=== PATIENT | female | born 1965 | race African-American/Black ===

== ENCOUNTER → 2020-06-05 | Outpatient (CLI) | payer OTHER ==
[~2020-06-05] MED LIST: DOCU-109 PO; FLUO60TA PO; GABA300C18 PO; GLUC-11 PO; IBUP-1060 PO; PREN-2 PO
[2020-06-05 13:41] LABS: BASO # 0.1 x10^3/uL (0.0-0.2); BASO % 1 % (0-3); EOS # 0.1 x10^3/uL (0.0-0.7); EOS % 1 % (0-3); HEMATOCRIT 38.9 % (36.0-47.0); HEMOGLOBIN 13.4 g/dL (12.0-15.5); LYMPH # 2.3 x10^3/uL (1.0-4.8); LYMPH % 24 % (24-48); MEAN CORPUSCULAR HEMOGLOBIN 31 pg (25-35); MEAN CORPUSCULAR HGB CONC 34 g/dL (31-37); MEAN CORPUSCULAR VOLUME 89 fL (79-100); MONO # 0.8 x10^3/uL (0.0-1.1); MONO % 8 % (0-9); NEUT # 6.6 x10^3/uL (1.8-7.7); NEUT % 67 % (31-73); PLATELET COUNT 279 x10^3/uL (140-400); RED BLOOD COUNT 4.38 x10^6/uL (3.50-5.40); RED CELL DISTRIBUTION WIDTH 13.6 % (11.5-14.5); WHITE BLOOD COUNT 9.9 x10^3/uL (4.0-11.0)
== END ==
LOC: SURGPAT 12:23
PROVIDERS: ATTEND Obstetrics & Gynecology
DX: Z01.818 Encounter for other preprocedural examination (principal); Z11.59 Encounter for screening for other viral diseases
CPT/HCPCS: 36415; 85025; U0003

== ENCOUNTER 2020-06-08 06:05 | Observation (INO) | payer OTHER ==
[2020-06-08] VITALS (9 sets, daily range): BP systolic 123–149; BP diastolic 65–82
[~2020-06-08] VITALS: Ht 152.4 cm; Wt 74.0 kg
[~2020-06-08 06:05] MED LIST changes: +AZTREONAM IV Push 1 GM VIAL. IVP PRN; +CLINDAMYCIN 900MG PREMIX 50 ML IV PRN; -DOCU-109 PO; -GABA300C18 PO; -IBUP-1060 PO
[2020-06-08] MEDS ORDERED: fentaNYL PF VIAL 100 MCG/2 ML VIAL IV PRN (07:00)
[2020-06-08] MEDS ORDERED: LIDOCAINE 1% PF 2 ML VIAL. ID PRN (07:00)
[2020-06-08] MEDS ORDERED: MORPHINE SULFATE 2 MG/ML VIAL. IV PRN (07:00)
[2020-06-08] MEDS ORDERED: ONDANSETRON PF 4 MG/2 ML VIAL. IV PRN ×2 (07:00→10:00)
[2020-06-08] MEDS ORDERED: IV RINGERS,LACTATED 1000ML 1,000 ML IV SCH (07:00)
[2020-06-08] MEDS ORDERED: PROCHLORPERAZINE 10 MG/2 ML VIAL. IV PRN ×2 (07:00→10:00)
[2020-06-08] MEDS ORDERED: HYDROmorphone 2 MG/ML VIAL IV PRN (07:00)
[2020-06-08] MEDS ORDERED: BUPIVACAINE-EPI 0.25%-1:200000 MPF 30 ML VIAL. ONE ×2 (07:05→09:33)
[2020-06-08] MEDS ORDERED: SURGICEL HEMOSTAT 4X8 EACH. ONE (07:05)
[2020-06-08] MEDS ORDERED: ESTROGENS, CONJ VAGINAL CREAM 30GM TUBE. ONE (07:05)
[2020-06-08] MEDS ORDERED: LIDOCAINE 1%/EPI 1:100,000 20 ML VIAL. ONE (07:05)
[2020-06-08] MEDS ORDERED: INDIGOTINDISULFONATE SODIUM 40 MG/5 ML AMPUL. ONE (07:05)
[2020-06-08] MEDS ORDERED: ROCURONIUM 50 MG/5 ML VIAL. ONE (07:14)
[2020-06-08] MEDS ORDERED: fentaNYL PF VIAL 100 MCG/2 ML VIAL ONE ×3 (07:14→10:30)
[2020-06-08] MEDS ORDERED: LIDOCAINE 2% PF 5 ML VIAL. ONE (07:14)
[2020-06-08] MEDS ORDERED: MIDAZOLAM HCL/PF 2 MG/2 ML VIAL. ONE (07:14)
[2020-06-08] MEDS ORDERED: PROPOFOL 10 MG/ML (20ML) VIAL. IV ONE (07:14)
[2020-06-08] MEDS ORDERED: DEXAMETHASONE SOD PHOS 4 MG/ML VIAL ONE (07:53)
[2020-06-08] MEDS ORDERED: ONDANSETRON PF 4 MG/2 ML VIAL. ONE (07:53)
[2020-06-08] MEDS ORDERED: GLYCOPYRROLATE 1 MG/5 ML VIAL. ONE (08:30)
[2020-06-08] MEDS ORDERED: ePHEDrine PF IN SALINE 50 MG/10 ML SYRINGE. IV ONE (08:30)
[2020-06-08] MEDS ORDERED: KETOROLAC 30 MG/ML VIAL. ONE (08:44)
[2020-06-08] MEDS ORDERED: NEOSTIGMINE METHYLSULFATE 5 MG/5 ML SYRINGE. ONE (08:47)
[2020-06-08] MEDS ORDERED: SEVOFLURANE 61 TO 120 MINUTES. IH ONE (09:19)
--- NOTE | 2020-06-08 09:53 | PDOC ---
BRIEF OPERATIVE NOTE Date: Jun 08, 2020 Pre-Op Diagnosis 1. Fibroids 2. Dyspareunia 3. Chronic Pelvic Pain 4. Cystocele Post-Op Diagnosis Same Procedure Performed 1. LAVH 2. Anterior Colporrhaphy Surgeon Dr. Hernandez Anesthesia Type: General Blood Loss 50 ml Specimens Obtained cervix, uterus, vesta. fallopian tubes Findings enlarged, fibroid uterus, nml fallopian tubes and ovaries vesta.; cystocele stage 3 Complications none Operative Note see dictation JIMMY HERNANDEZ Jr, MD Jun 08, 2020 09:53
[2020-06-08] MEDS ORDERED: CALCIUM CARBONATE 500 MG TAB.CHEW PO PRN (10:00)
[2020-06-08] MEDS ORDERED: DEXTROSE 50% 25 GM / 50ML DISP.SYRIN. IV PRN (10:00)
[2020-06-08] MEDS ORDERED: diphenhydrAMINE 50 MG/ML VIAL IV PRN (10:00)
[2020-06-08] MEDS ORDERED: ZOLPIDEM 5 MG TABLET. PO PRN (10:00)
[2020-06-08] MEDS ORDERED: diphenhydrAMINE HCL 25 MG CAPSULE PO PRN (10:00)
[2020-06-08] MEDS ORDERED: SIMETHICONE 80 MG TAB.CHEW PO PRN (10:00)
[2020-06-08] MEDS ORDERED: 0.9 % SODIUM CHLORIDE 10 ML DISP.SYRIN. IV PRN (10:00)
--- NOTE | 2020-06-08 10:06 | OP ---
DATE OF SURGERY: 06/08/2020 PREOPERATIVE DIAGNOSES: 1. Fibroids. 2. Dyspareunia. 3. Chronic pelvic pain. 4. Cystocele. POSTOPERATIVE DIAGNOSES: 1. Fibroids. 2. Dyspareunia. 3. Chronic pelvic pain. 4. Cystocele. PROCEDURE: 1. Laparoscopically assisted vaginal hysterectomy. 2. Anterior colporrhaphy. SURGEON: Jimmy Hernandez MD ANESTHESIA: General. ESTIMATED BLOOD LOSS: 50 mL. COMPLICATIONS: None. FINDINGS: Enlarged fibroid uterus, normal fallopian tubes and ovaries bilaterally, and cystocele stage 3. SUMMARY: A 54-year-old female with long history of enlarging fibroids, chronic pelvic pain, and dyspareunia as well as a cystocele, requiring surgical management. She was counseled on risks, benefits and expectations of the surgeries and desired to proceed. DESCRIPTION OF PROCEDURE: The patient was taken to surgery suite and placed in dorsal lithotomy position. She was prepped with Betadine solution for vaginal prep and ChloraPrep for abdominal prep. After adequate anesthesia, bivalve speculum was placed vaginally. Anterior lip of the cervix grasped with single tooth tenaculum. The [employer] uterine manipulator was then placed. The bivalve speculum was removed. Attention was now placed on abdomen. Small transverse skin incision was made just below the umbilicus with a scalpel. The Veress needle was then placed through the infraumbilical incision site. The abdomen was allowed to insufflate up to 1-1/2 liters CO2 gas. Veress needle was then removed. A 5-mm trocar was placed. There were some adhesions of the omentum to the abdominal wall. Two additional incisions made in the left lower quadrant, which 5 mm trocars were placed. The adhesions of the omentum to abdominal wall were removed using the EnSeal device. We then proceeded with the hysterectomy portion. The uterus was very enlarged with multiple fibroids. Fallopian tubes and ovaries appeared normal bilaterally. The right fallopian tube was grasped with graspers. The EnSeal device was utilized to coagulate and dissect the right fallopian tube away from the pelvic sidewall. The right utero-ovarian pedicle was coagulated and dissected. The right round ligament was coagulated and dissected down through the right broad ligament to the uterine artery. Same process took place with left adnexa. We then proceeded vaginally. Weighted speculum and curved Jodie placed vaginally. The [employer] uterine manipulator and single tooth tenaculum were removed. Tyler clamps were placed on the anterior and posterior lip of the cervix. 1% lidocaine with epinephrine was injected in a circumferential manner around the cervix. The cervix was then circumscribed with Bovie cautery. The vaginal mucosa was dissected away from the lower uterine segment using blunt dissection with a moist Ray-Sana. The parametrial tissue was clamped bilaterally with curved Karyn clamps, cut and suture ligated with 2-0 Vicryl suture. Posterior cul-de-sac was then entered sharply with curved Frye scissors. The uterosacral ligaments were then clamped bilaterally, cut, and suture ligated. We then entered the anterior cul-de-sac with blunt dissection using moist Ray-Sana. The cardinal ligaments were then clamped bilaterally, cut, and suture ligated. Uterus was then partially removed. There were 2 peritoneal adhesions that were clamped, cut, and tied with free tie. The cervix, uterus and bilateral fallopian tubes were then removed in their entirety. A modified Cummins's culdoplasty was performed incorporating the uterosacral ligaments bilaterally. The remainder of the vaginal cuff was reapproximated using 2-0 Vicryl suture in [id number] manner. Small Allis clamp was placed 2 cm below the urethral orifice on the anterior vaginal wall. A second Allis clamp was placed just 4 cm below the first Allis clamp at the midline of the anterior vaginal wall. 1% lidocaine with epinephrine was injected between the 2 Allis clamps. Scalpel was utilized to make a vertical incision between 2 Allis clamps. The anterior vaginal wall mucosa was dissected free of the pubovesical fascia using sharp dissection with Metzenbaum scissors bilaterally. The pubovesical fascia was reapproximated using 2-0 Vicryl sutures in an interrupted fashion. The excess anterior vaginal mucosa was excised with Metzenbaum scissors. The remaining anterior vaginal wall mucosa was reapproximated using 2-0 Vicryl suture in a [id number] manner. Moist vaginal packing was placed. Attention was once again placed on abdomen. The abdomen was insufflated up to 1-1/2 liters CO2 gas. The scope was positioned. The vaginal cuff was visualized and was hemostatic. This was verified with suction irrigation. Both ovaries appeared normal. A small amount of normal saline was left in posterior cul-de-sac. The trocars were then removed under direct visualization. Abdomen was allowed to deflate as much as possible along with mechanical manipulation. The three skin incisions were reapproximated using 4-0 Vicryl suture in subcuticular manner. A 0.25% Marcaine with epinephrine was injected at each incision site. The patient tolerated the procedure well and was taken to recovery room in stable condition. Sponge and needle count correct x 3. JIMMY HERNANDEZ MD DR: BRANNON/lucila JOB#: [id number] / [id number]
[2020-06-08] MEDS: fentaNYL PF VIAL 100 MCG/2 ML VIAL IV PRN ×2 (10:38→10:47)
[2020-06-08] MEDS: oxyCODONE/APAP 5/325 1 TAB TABLET PO PRN ×4 (11:38→19:43)
[2020-06-08] MEDS ORDERED: fentaNYL PF VIAL 100 MCG/2 ML VIAL IVP ONE (12:30)
[2020-06-08] MEDS ORDERED: OPIUM/BELLADONNA 30/16.2MG SUPP.RECT. PR PRN (14:15)
[2020-06-08] MEDS: GABAPENTIN 300 MG CAPSULE. PO SCH ×2 (14:43→22:59)
[2020-06-08] MEDS: KETOROLAC 30 MG/ML VIAL. IV PRN ×2 (14:43→20:47)
[2020-06-08] MEDS: BENZOCAINE/MENTHOL LOZENGE. PO PRN ×2 (15:07→18:56)
--- NOTE | 2020-06-08 23:17 | NUR ---
Vag packing removed per telephone order from Dr. Hernandez at [phone].
[2020-06-09 02:33] VITALS: BP 136/72
[2020-06-09] MEDS: GABAPENTIN 300 MG CAPSULE. PO SCH ×2 (06:03→14:25)
[2020-06-09 06:23] VITALS: BP 145/83
[2020-06-09 06:32] LABS: BASO % 0 % (0-3); EOS % 0 % (0-3); HEMATOCRIT 32.5 % (36.0-47.0); LYMPH # 2.7 x10^3/uL (1.0-4.8); LYMPH % 20 % (24-48); MEAN CORPUSCULAR HEMOGLOBIN 30 pg (25-35); MEAN CORPUSCULAR HGB CONC 34 g/dL (31-37); MEAN CORPUSCULAR VOLUME 90 fL (79-100); MONO # 1.1 x10^3/uL (0.0-1.1); MONO % 9 % (0-9); NEUT # 9.3 x10^3/uL (1.8-7.7); NEUT % 71 % (31-73); PLATELET COUNT 241 x10^3/uL (140-400); RED BLOOD COUNT 3.62 x10^6/uL (3.50-5.40); RED CELL DISTRIBUTION WIDTH 13.3 % (11.5-14.5); WHITE BLOOD COUNT 13.2 x10^3/uL (4.0-11.0)
[2020-06-09] MEDS: KETOROLAC 30 MG/ML VIAL. IV PRN (08:59)
[2020-06-09] MEDS: BENZOCAINE/MENTHOL LOZENGE. PO PRN (09:38)
[2020-06-09 11:30] VITALS: BP 137/73
--- NOTE | 2020-06-09 13:48 | PDOC ---
SURGICAL PROGRESS NOTE DATE: 06/09/20 TIME: 13:47 Subjective Pt. feeling well. Pt. tolerating regular diet, ambulating and voiding without difficulty. Vital Signs Vital Signs Date Time Temp Pulse Resp B/P (MAP) Pulse Ox O2 Delivery O2 Flow Rate FiO2 06/09/20 11:30 98.8 82 18 137/73 (94) 93 98.8 06/09/20 06:23 Room Air 06/08/20 10:15 6 I&O Intake and Output 06/09/20 07:00 Intake Total 1960 ml Output Total 1290 ml Balance 670 ml Intake Oral 760 ml IV Total 1200 ml Output Urine Total 1240 ml Estimated Blood Loss 50 ml PATIENT HAS A DUNCAN: No General: Alert, Oriented X3, Cooperative HEENT: Atraumatic Lungs: Clear to auscultation Heart: Regular rate Abdomen: Normal bowel sounds, Soft, No tenderness Psych/Mental Status: Mental status NL Labs Laboratory Tests Test 06/09/20 05:50 White Blood Count 13.2 x10^3/uL (4.0-11.0) Red Blood Count 3.62 x10^6/uL (3.50-5.40) Hemoglobin 11.0 g/dL (12.0-15.5) Hematocrit 32.5 % (36.0-47.0) Mean Corpuscular Volume 90 fL (79-100) Mean Corpuscular Hemoglobin 30 pg (25-35) Mean Corpuscular Hemoglobin Concent 34 g/dL (31-37) Red Cell Distribution Width 13.3 % (11.5-14.5) Platelet Count 241 x10^3/uL (140-400) Neutrophils (%) (Auto) 71 % (31-73) Lymphocytes (%) (Auto) 20 % (24-48) Monocytes (%) (Auto) 9 % (0-9) Eosinophils (%) (Auto) 0 % (0-3) Basophils (%) (Auto) 0 % (0-3) Neutrophils # (Auto) 9.3 x10^3/uL (1.8-7.7) Lymphocytes # (Auto) 2.7 x10^3/uL (1.0-4.8) Monocytes # (Auto) 1.1 x10^3/uL (0.0-1.1) Eosinophils # (Auto) 0.0 x10^3/uL (0.0-0.7) Basophils # (Auto) 0.0 x10^3/uL (0.0-0.2) Laboratory Tests Test 06/09/20 05:50 White Blood Count 13.2 x10^3/uL (4.0-11.0) Red Blood Count 3.62 x10^6/uL (3.50-5.40) Hemoglobin 11.0 g/dL (12.0-15.5) Hematocrit 32.5 % (36.0-47.0) Mean Corpuscular Volume 90 fL (79-100) Mean Corpuscular Hemoglobin 30 pg (25-35) Mean Corpuscular Hemoglobin Concent 34 g/dL (31-37) Red Cell Distribution Width 13.3 % (11.5-14.5) Platelet Count 241 x10^3/uL (140-400) Neutrophils (%) (Auto) 71 % (31-73) Lymphocytes (%) (Auto) 20 % (24-48) Monocytes (%) (Auto) 9 % (0-9) Eosinophils (%) (Auto) 0 % (0-3) Basophils (%) (Auto) 0 % (0-3) Neutrophils # (Auto) 9.3 x10^3/uL (1.8-7.7) Lymphocytes # (Auto) 2.7 x10^3/uL (1.0-4.8) Monocytes # (Auto) 1.1 x10^3/uL (0.0-1.1) Eosinophils # (Auto) 0.0 x10^3/uL (0.0-0.7) Basophils # (Auto) 0.0 x10^3/uL (0.0-0.2) Assessment/Plan A: POD#1 s/p LAVH & anterior repair P: D/c home. Justicifation of Admission Dx: Justifications for Admission: Justification of Admission Dx: Yes JIMMY OGDEN Jr, MD Jun 09, 2020 13:48
[2020-06-09] MEDS ORDERED: DOCU-109 PO (13:51)
[2020-06-09] MEDS ORDERED: GABA300C18 PO (13:51)
[2020-06-09] MEDS ORDERED: IBUP-1060 PO (13:51)
--- NOTE | 2020-06-09 13:51 | DISCH ---
DISCHARGE INSTRUCTIONS Condition on Discharge Condition on Discharge: Stable Activity After Discharge Activity Instructions for Disc: Activity as tolerated Lifting Instructions after Dis: No heavy lifting Driving Instructions after Dis: No driving for 2 weeks Diet after Discharge Diet after Discharge: Regular Contacting the [facility] after DC Call your doctor for: Concerns you may have Follow-Up Follow up with: Dr. Hernandez in 2 wks JIMMY HERNANDEZ Jr, MD Jun 09, 2020 13:51
[2020-06-09 14:07] VITALS: BP 139/78
--- NOTE | 2020-06-09 14:10 | NUR ---
Discharge instructions given to pt. Pt verbalized understanding. Pt discharged home with spouse.
--- NOTE | 2020-06-12 16:06 | PATHOLOGY ---
[facility] Accession Number: [id number] . 01 Material submitted: . uterus - UTERUS, CERVIX, AND BILATERAL FALLOPIAN TUBES. Modifiers: bilateral . 01 Clinical history: . fibroids, cystocele, dyspareunia . 02 Diagnosis: Uterus with bilateral attached fallopian tubes, laparoscopic assisted - hysterectomy with bilateral salpingectomy: - Leiomyomas, uterine corpus, submucosal/intramural/ subserosal, multiple, the largest measuring 5.0 cm in greatest dimension and showing focal calcification, producing enlargement and nodular distortion of uterine corpus. - Nabothian cyst, cervix. - Atrophic endometrium. - Adenomyosis, uterine corpus, focal. - Congestion of bilateral fallopian tubes. ([facility] 06/12/2020) [facility] 06/12/2020 1054 Local . 02 Comment: There is no evidence of malignancy. ([facility] 06/12/2020) . 02 Electronically signed: . Ab Browning MD, Pathologist NPI- [id number] . 01 Gross description: . The specimen is received in formalin, labeled "Reindl, Angelica, cervix uterus bilateral fallopian tubes" and consists of a markedly distorted and multinodular 148 g uterus with attached cervix measuring 11.4 x 7.7 x 5.0 cm. Attached is the right fimbriated fallopian tube (6.0 cm in length and 0.5 cm diameter) and left fimbriated fallopian tube (6.6 cm in length 0.5 cm in diameter). The uterine serosa is sage with focal hemorrhage. The 1.0 cm slitlike cervical os is surrounded by glistening sage ectocervical mucosa. It is bivalved to reveal a corrugated endocervical canal measuring 2.8 cm. The endometrial cavity is distorted by multiple intramural nodules and measures approximately 3.5 cm in length and 1.8 cm in width with an attenuated 0.1 cm pink endometrium. The intramural nodules measure up to 5.0 cm showing whorled white to pink cut surfaces. The largest nodule shows focal possible degenerative changes. Both fallopian tubes show a well-defined central lumen. Practice Lead sections are submitted as follows: . A1: Anterior cervix A2: Posterior cervix A3: Anterior endomyometrium with nodule A4: Posterior endomyometrium with nodules A5-A8: Largest nodule A9: Right fallopian tube A10: Left fallopian tube (SDY; 06/09/2020) [facility]U 06/12/2020 1055 Local . 02 Pathologist provided ICD-10: D25.0, D25.1, D25.2, N88.8, N80.0 . 02 CPT . 366667 Specimen Comment: A courtesy copy of this report has been sent to [phone], [phone] Specimen Comment: [id number] Specimen Comment: Report sent to / Performed at: 01 [facility] [address] [facility] [address], [place] [id number] MD Khoa Castillo MD Phone: [phone] Performed at: 02 [facility] [address] [place], [place] [id number] MD Ab Browning MD Phone: [phone]
== END 2020-06-09 15:35 | disposition home or self-care (01) ==
LOC: SURG 06:05 → 3 NORTH 10:24
PROVIDERS: ADMIT Obstetrics & Gynecology; ATTEND Obstetrics & Gynecology
DX: D25.9 Leiomyoma of uterus, unspecified (principal); N94.10 Unspecified dyspareunia; R10.2 Pelvic and perineal pain; G89.29 Other chronic pain; N81.10 Cystocele, unspecified
CPT/HCPCS: 36415; 58552; 85025; 86850; 86900; 86901; 96374; 96375; 96376; A7015; G0378; G0379; J1100; J1885; J2250; J2704; J2710; J3010; J3490; J7030; J7120; J2405